=== PATIENT | female | born 1970 | race Caucasian/White ===

== ENCOUNTER → 2019-03-16 | Emergency (ER) | payer SELFPAY ==
[~2019-03-16] VITALS: Ht 177.8 cm; Wt 95.3 kg
[2019-03-16 13:11] VITALS: BP 172/93
== END | disposition left against medical advice (07) ==
LOC: ER 12:52
DX: S20.162A Insect bite (nonvenomous) of breast, left breast, initial encounter (principal); Z53.21 Procedure and treatment not carried out due to patient leaving prior to being seen by health care provider; W57.XXXA Bitten or stung by nonvenomous insect and other nonvenomous arthropods, initial encounter; Y93.89 Activity, other specified; Y99.8 Other external cause status; Y92.89 Other specified places as the place of occurrence of the external cause